=== PATIENT | female | born 1990 | race African-American/Black ===

== ENCOUNTER 2016-12-22 18:50 | Emergency (ER) | payer OTHER ==
[~2016-12-22] VITALS: Ht 175.3 cm; Wt 137.9 kg
[2016-12-22 19:00] VITALS: BP 166/111
[2016-12-22] MEDS ORDERED: NAPR500T8 PO (19:14)
[2016-12-22] MEDS ORDERED: HYDR-971 PO (19:14)
[2016-12-22] MEDS ORDERED: AMOX875T PO (19:14)
--- NOTE | 2016-12-22 19:14 | PHYS DOC ---
Adult General Chief Complaint Chief Complaint: DENTAL PROBLEM HPI HPI Patient is a 26 year old female who presents with right wisdom tooth pain that has been going on for months. Patient states the pain got worse in the last 2 days. She states she went to [facility] dental school and she was informed she needs a complicated procedure to remove the wisdom tooth. Review of Systems Review of Systems Constitutional: Denies fever or chills [] Eyes: Denies change in visual acuity, redness, or eye pain [] HENT: Dental pain Integument: Denies rash or skin lesions [] Neurologic: Denies headache, focal weakness or sensory changes [] Endocrine: Denies polyuria or polydipsia [] Physical Exam Physical Exam Constitutional: Well developed, well nourished, no acute distress, non-toxic appearance. [] HENT: Normocephalic, atraumatic, bilateral external ears normal, oropharynx moist, no oral exudates, nose normal. [] [place] tooth of the right lower gum appears to be growing with no room for growth. There is slight swelling over the gum area of the wisdom tooth. There is no erythema, there is no redness to the gum Skin: Warm, dry, no erythema, no rash. [] Back: No tenderness, no CVA tenderness. [] Extremities: No tenderness, no cyanosis, no clubbing, ROM intact, no edema. [] Neurologic: Alert and oriented X 3, normal motor function, normal sensory function, no focal deficits noted. [] Psychologic: Affect normal, judgement normal, mood normal. [] EKG EKG [] Radiology/Procedures Radiology/Procedures [] Course & Med Decision Making Course & Med Decision Making Pertinent Labs and Imaging studies reviewed. (See chart for details) Patient has right lower gum dental pain from a wisdom tooth that is growing without room to grow. She is to have the tooth removed but she cannot see a dentist because she she needs specialized surgery. We gave her a dental list. Discharge her with naproxen, hydrocodone, and amoxicillin. Dragon Disclaimer Dragon Disclaimer This electronic medical record was generated, in whole or in part, using a voice recognition dictation system. Departure Departure Impression: Primary Impression: Dentalgia Disposition: 01 HOME, SELF-CARE Condition: STABLE Patient Instructions: Dental Caries Additional Instructions: You were seen for dental pain. Try and contact a dentist who does patient special surgeries for your kind of dental problem and follow-up as soon as possible. Take the prescribed medicines as ordered, complete your antibiotics. Scripts Naproxen 500 Mg Tablet.dr1 Tab PO BID #60 TAB Ref 2 Prov:JOE JUNIOR APRN 12/22/16 Hydrocodone/Apap 5-325 ([place] 5-325 Tablet)1 Each Tablet1-2 Tab PO Q4-6HRS #14 TAB Prov:JOE JUNIOR APRN 12/22/16 Amoxicillin 875 Mg Tablet1 Tab PO BID #20 TAB Prov:JOE JUNIOR APRN 12/22/16 JOE JUNIOR APRN Dec 22, 2016 19:14
== END 2016-12-22 19:17 | disposition home or self-care (01) ==
LOC: ER 18:50
DX: K08.89 Other specified disorders of teeth and supporting structures (principal)
CPT/HCPCS: 99283

== ENCOUNTER 2017-01-04 09:19 | Emergency (ER) | payer OTHER ==
[~2017-01-04] VITALS: Ht 175.3 cm; Wt 136.5 kg
[~2017-01-04 09:19] MED LIST: AMOX875T PO; HYDR-971 PO; NAPR500T8 PO
[2017-01-04 10:03] VITALS: BP 148/96
[2017-01-04 10:41] LABS: OBC FLU VALID
[2017-01-04] MEDS ORDERED: HYDR-971 PO (10:43)
--- NOTE | 2017-01-04 10:43 | PHYS DOC ---
Past Medical History Past Medical History: Hypertension Additional Past Medical Histor: PTSD Past Surgical History: No Surgical History Alcohol Use: None Drug Use: None Adult General Chief Complaint Chief Complaint: FLU SYMPTOM HPI HPI Patient is a 26 year old female presents emergency department stating that she was seen here on December 22 for dental pain. She states she was placed on hydrocodone and amoxicillin. After reviewing her record she was also placed on naproxen. Patient states that she continues to have pain and discomfort that goes into her right ear. She states that she's had a sore throat. She denies any fever, chills or any nausea or vomiting. She states that she completed her antibiotic dosage 2 days ago. Patient states that she does have a appointment with the dentist on January 13. Review of Systems Review of Systems Constitutional: Denies fever or chills [] Eyes: Denies change in visual acuity, redness, or eye pain [] HENT: Denies nasal congestion C/o sore throat , right ear pain and right upper and lower dental pain Respiratory: Denies cough or shortness of breath [] Cardiovascular: No additional information not addressed in HPI [] GI: Denies abdominal pain, nausea, vomiting, bloody stools or diarrhea [] : Denies dysuria or hematuria [] Musculoskeletal: Denies back pain or joint pain [] Integument: Denies rash or skin lesions [] Neurologic: Denies headache, focal weakness or sensory changes [] Allergies Allergies Allergies Coded Allergies Type Severity Reaction Last Updated Verified No Known Drug Allergies 12/22/16 No Physical Exam Physical Exam Constitutional: Well developed, well nourished, no acute distress, non-toxic appearance. [] HENT: Normocephalic, atraumatic, bilateral external ears normal, oropharynx moist, no oral exudates, nose normal. Bilateral tympanic membranes appear to be normal. Throat appears to be without erythematous. Patient appears to have swelling in the lower and upper back dental areas on the right. Eyes: PERRLA, EOMI, conjunctiva normal, no discharge. [] Neck: Normal range of motion, no tenderness, supple, no stridor. [] Cardiovascular:Heart rate regular rhythm, no murmur [] Lungs & Thorax: Bilateral breath sounds clear to auscultation [] Skin: Warm, dry, no erythema, no rash. [] Back: No tenderness Extremities: No tenderness, no cyanosis, no clubbing, ROM intact, no edema. [] Neurologic: Alert and oriented X 3, normal motor function, normal sensory function, no focal deficits noted. [] Psychologic: Affect normal, judgement normal, mood normal. [] Current Patient Data Vital Signs Vital Signs Date Time Temp Pulse Resp B/P Pulse Ox O2 Delivery O2 Flow Rate FiO2 01/04/17 10:03 98.2 98 18 99 Room Air 98.2 Lab Values Laboratory Tests Test 01/04/17 10:11 Influenza Type A Antigen Negative (NEGATIVE) Influenza Type B Antigen Negative (NEGATIVE) EKG EKG [] Radiology/Procedures Radiology/Procedures [] Course & Med Decision Making Course & Med Decision Making Pertinent Labs and Imaging studies reviewed. (See chart for details) Rapid strep was negative. Fluids as well as were negative. Patient will be instructed to drink plenty of fluids such as water and Gatorade or propel. Signs symptoms to return back to emergency department as been provided. You may continue to use the naproxen that you have been prescribed on the . Keep your appointment with the dentist in which she state you have January 13. Patient agrees with discharge instructions treatment regimens and follow-up recommendations. [] Dragon Disclaimer Dragon Disclaimer This electronic medical record was generated, in whole or in part, using a voice recognition dictation system. Departure Departure Disposition: 01 HOME, SELF-CARE Condition: STABLE Referrals: NO PCP (PCP) Patient Instructions: Dental Pain, [id number] Additional Instructions: Home to rest Medication as prescribed Continue to use the Naproxen you had been prescribed on 12/22/16 Warm salt water gargles Ice packs to the outer area of the mouth Keep your followup appointment you have with the dentist on 01/13/17 Return to emergency department as needed for signs and symptoms that become worse. Scripts Hydrocodone/Apap 5-325 ([place] 5-325 Tablet)1 Each Tablet1 Tab PO PRN Q6HRS PRN PAIN #10 TAB Prov:DIAMOND RIVERA NP 01/04/17 DIAMOND RIVERA NP Jan 04, 2017 10:43
[2017-01-04 11:25] LABS: NEGATIVE OBC STREP NEG; POSITIVE OBC STREP POS
== END 2017-01-04 10:53 | disposition home or self-care (01) ==
LOC: ER 09:19
DX: J02.9 Acute pharyngitis, unspecified (principal); H92.01 Otalgia, right ear; K08.89 Other specified disorders of teeth and supporting structures; I10 Essential (primary) hypertension; F43.10 Post-traumatic stress disorder, unspecified
CPT/HCPCS: 87070; 87804; 87880; 99284

== ENCOUNTER 2017-07-29 08:38 | Emergency (ER) | payer OTHER ==
[~2017-07-29] VITALS: Ht 177.8 cm; Wt 131.1 kg
[2017-07-29 08:53] VITALS: BP 145/98
--- NOTE | 2017-07-29 08:54 | PHYS DOC ---
Past Medical History Past Medical History: Hypertension Additional Past Medical Histor: PTSD Past Surgical History: No Surgical History Alcohol Use: None Drug Use: None Adult General Chief Complaint Chief Complaint: VAGINAL BLEEDING [facility] HPI Patient is a 26 year old female presents to the emergency department with complaints of vaginal bleeding. Patient reports that her last normal menstrual period was June,. She states she is currently on Implanon control. Patient is concerned that she may be and bleeding and is here seeking evaluation. She reports that 3 days ago she had some mild lower abdominal cramping with spotting, denies abd or pelvic pain at this time.This morning she had a blood clot pass and she is unsure as to whether this is a fetus. Patient is a 3 para 1 spontaneous 2 Review of Systems Review of Systems Constitutional: Denies fever or chills [] Eyes: Denies change in visual acuity, redness, or eye pain [] HENT: Denies nasal congestion or sore throat [] Respiratory: Denies cough or shortness of breath [] Cardiovascular: No additional information not addressed in HPI [] GI: Denies abdominal pain, nausea, vomiting, bloody stools or diarrhea [] : Vaginal bleeding Musculoskeletal: Denies back pain or joint pain [] Integument: Denies rash or skin lesions [] Neurologic: Denies headache, focal weakness or sensory changes [] Endocrine: Denies polyuria or polydipsia [] Allergies Allergies Allergies Coded Allergies Type Severity Reaction Last Updated Verified No Known Drug Allergies 12/22/16 No Physical Exam Physical Exam Constitutional: Well developed, well nourished, no acute distress, non-toxic appearance. [] Cardiovascular:Heart rate regular rhythm, no murmur [] Lungs & Thorax: Bilateral breath sounds clear to auscultation [] Abdomen: Bowel sounds normal, soft, no tenderness Skin: Warm, dry, no erythema, no rash. [] Current Patient Data Vital Signs Vital Signs Date Time Temp Pulse Resp B/P (MAP) Pulse Ox O2 Delivery O2 Flow Rate FiO2 07/29/17 08:53 98.7 91 20 145/98 (114) 95 Room Air 98.7 Lab Values Laboratory Tests Test 07/29/17 08:50 POC Urine HCG, Qualitative Hcg negative (Negative) EKG EKG [] Radiology/Procedures Radiology/Procedures [] Course & Med Decision Making Course & Med Decision Making Pertinent Labs and Imaging studies reviewed. (See chart for details) []UCG negative Dragon Disclaimer Dragon Disclaimer This electronic medical record was generated, in whole or in part, using a voice recognition dictation system. Departure Departure Impression: Primary Impression: Menses, irregular Disposition: 01 HOME, SELF-CARE Condition: STABLE Referrals: NO PCP (PCP) [facility] Patient Instructions: Uterine Bleeding, Dysfunctional JOSÉ MIGUEL RAMIREZ APRN Jul 29, 2017 08:54
== END 2017-07-29 09:10 | disposition home or self-care (01) ==
LOC: ER 08:38
DX: N92.6 Irregular menstruation, unspecified (principal); I10 Essential (primary) hypertension; F43.10 Post-traumatic stress disorder, unspecified
CPT/HCPCS: 81025; 99282

== ENCOUNTER 2018-02-24 09:52 | Emergency (ER) | payer OTHER | END 2018-02-24 11:09 | disposition home or self-care (01) | LOC: ER 09:52 | DX: M25.531 Pain in right wrist (principal); G43.909 Migraine, unspecified, not intractable, without status migrainosus; I10 Essential (primary) hypertension; F31.9 Bipolar disorder, unspecified; F43.10 Post-traumatic stress disorder, unspecified | CPT/HCPCS: 29125; 73130; 99284-25 ==